=== PATIENT | female | born 1950 | race Caucasian/White ===

== ENCOUNTER → 2018-02-05 14:29 | Outpatient (CLI) | payer OTHER, SELFPAY ==
--- NOTE | 2018-02-05 | DI.RAD.S_ITS ---
PROCEDURE: XR CERVICAL SPINE 2V OR 3V INDICATIONS: status post cervical spinal fusion C1--2 fusion TECHNIQUE: 3 view(s) of the cervical spine were acquired. COMPARISON: [facility], , XR CERVICAL SPINE 4V OR 5V, 09/03/2017, 13:52. FINDINGS: Bones: Postsurgical changes are noted at the level of C1 and C2 reflecting laurel and screw fixation. Hardware is intact without visualized change in alignment or fracture. Significant multiple degenerative changes are present. Soft tissues: No prevertebral soft tissue swelling. IMPRESSION: Stable appearance of C1 to fixation hardware as above. Dictated by: Tracy Lay M.D. on 02/05/2018 at 15:59 Approved by: Tracy Lay M.D. on 02/05/2018 at 16:00
== END ==
PROVIDERS: PCP Family Medicine Geriatric Medicine; Visit Provider Neurological Surgery
DX: Z98.1 Arthrodesis status (principal)
CPT/HCPCS: 72040

== ENCOUNTER 2018-04-16 09:54 | Day surgery (SDC) | payer OTHER, SELFPAY ==
--- NOTE | 2018-04-16 | PATH_ITS ---
[facility] Accession Number: [id number] . 01 Material submitted: . ANAL POLYP . 02 Diagnosis: Anal Polyp, Biopsy: Anorectal junctional mucosa with chronic, focally active inflammation and features of prolapse. Ectatic vessels suggestive of hemorrhoids. Negative for dysplasia or malignancy. MRV/04/17/2018 . 02 Electronically signed: . Tj Oscar MD, PhD, Pathologist NPI- [id number] . 01 Gross description: . Received one formalin-filled container labeled with the patient's name and labeled anal polyp, are two 0.3-0.4 cm portions of tissue, entirely submitted in one cassette. ([id number]) /FRR . 02 Pathologist provided ICD-10: K62.1 . 02 CPT . 010646 Performed at: 01 [facility] [address] [id number] MD Rodney Carmichael MD Phone: [phone] Performed at: 02 [facility] [address] [place], [place] [id number] MD Marli Proctor MD Phone: [phone]
[2018-04-16 10:03] VITALS: BMI 24.3
[2018-04-16 10:10] VITALS: BP 116/70; PULSE 60; RESP 15; TEMP 36.1; O2SAT 100
[2018-04-16] MEDS: SODIUM CHLORIDE 0.9% 1,000 ML 200 ML IV (10:23)
--- NOTE | 2018-04-16 10:33 | SUR.PREOP ---
Pt is ready for procedure at this time. IV patent, NS infusing, Nursing admission has been completed and consent has been signed. Dr Redding will need to complete H/P and sign consent. at the bedside and awaiting Endo fisher troll line and beside assessment by the MD. Discharge instructions have been reviewed with the Pt pre-operatively. No questions at this time.
--- NOTE | 2018-04-16 11:12 | PM.HP.1 ---
History of Present Illness Date Patient Seen: 04/16/18 Time Patient Seen: 11:13 Chief complaint: [id number] Narrative: Patient is a woman here for screening colonoscopy. Her father had colon cancer and from it. Her last exam was 6 years ago. Patient History Medical History Anxiety (Chronic) Surgical History H/O laparoscopy (Resolved) H/O spinal fusion (Resolved) History of appendectomy (Resolved) Family & Social History Social History: household members spouse Meds Home Medications Medication Instructions Recorded Confirmed Type [CO-Q10] 300 mg PO QDAY #0 06/06/16 History aspirin 81 mg PO QDAY #0 06/06/16 04/16/18 History cholecalciferol (vitamin D3) 2,000 iu PO QDAY #0 06/06/16 History [Vitamin D3] cyanocobalamin (vitamin B-12) 5,000 mcg PO QDAY #0 06/06/16 History escitalopram oxalate [Lexapro] 10 mg PO QDAY #0 06/06/16 04/16/18 History estradiol [Estrace] 1 gm VAGINAL #0 06/06/16 History estradiol [Vagifem] 10 mcg VG #0 06/06/16 History magnesium 200 mg PO BID #0 06/06/16 History melatonin 3 mg PO HS #0 06/06/16 History metronidazole [Noritate] 1 homero TOPICAL QDAY #0 06/06/16 History vitamin E 400 unit PO QDAY #0 06/06/16 History metronidazole 1 applic TOPICAL DAILY 04/16/18 04/16/18 History Allergies Allergy/AdvReac Type Severity Reaction Status Date / Time ciprofloxacin [From CIPRO] AdvReac Mild NAUSEA Unverified 08/08/17 12:57 sulfamethoxazole AdvReac Mild MILD Unverified 08/08/17 12:57 [From BACTRIM] NAUSEA (COMPLETE COURSE OF ABX) trimethoprim [From BACTRIM] AdvReac Mild MILD Unverified 08/08/17 12:57 NAUSEA (COMPLETE COURSE OF ABX) Review of Systems Review of Systems All systems reviewed & are unremarkable except as noted in HPI and below Musculoskeletal Comments: Chronic back pain Exam Vital Signs (past 8 hours): - 04/16/18 10:10 Temperature 97 F L Pulse Rate 60 Respiratory Rate 15 Blood Pressure 116/70 Pulse Oximetry 100 Oxygen Delivery Method Room Air Narrative Exam Narrative: Operative no apparent distress. Lungs are clear. Heart regular rate and rhythm with no murmur gallop. Abdomen is soft nontender without mass. Assessment & Plan Plan: Assessment/Plan Narrative: Patient for screening colonoscopy. I have discussed the procedure and the rationale with the patient including risks of bleeding, perforation which would necessitate a major operation, failure to find remove all lesions and the potential to tattoo. They appeared to understand and wished to proceed.
--- NOTE | 2018-04-16 11:18 | PM.PREOP ---
Pre-operative Note Interval Note Pre-op Check: Yes History & Physical exam performed today by Physician Changes: No ASA Class (for procedural sedation): I
[2018-04-16] MEDS: MIDAZOLAM 5 MG/5 ML VIAL IV (11:40)
[2018-04-16] MEDS: fentaNYL 250 MCG/5 ML INJ IV (11:41)
--- NOTE | 2018-04-16 11:51 | PM.OP.ENDO ---
Operative Date/Time/Diagnoses Date of procedure: 04/16/18 Time of procedure: 11:52 Pre-op diagnosis: Screening examination. Last exam 6 years ago. Family history of colon cancer father Post-op diagnosis: same (Irritation on a hemorrhoid. Biopsies taken.) Procedure & Clinicians Study performed: Colonoscopy with cold biopsy Same procedure as scheduled: Yes Indications: Screening exam Surgeon: Shmuel Redding Procedure Notes SCOAP/Timeout: Performed Procedure in detail: The patient was placed in the left lateral decubitus position and underwent IV sedation directed by the surgeon consisting of fentanyl and Versed. Digital exam was unremarkable except for slight increase in tone. The scope was inserted and advanced through the rectum into the sigmoid, descending, transverse, and ascending colon. The colon was quite elongated and tortuous. Diverticulosis was noted in the sigmoid colon. I had at a stiffener in order to reach the cecum. The cecum was reached identified by the ileocecal valve and the appendiceal opening. The ileocecal valve was successfully cannulated. The terminal ileum was normal in appearance. The scope was gradually brought out. No Polyps were found. The scope ultimately was retroflexed in the rectum. The appearance was remarkable for excoriation on hemorrhoid. It was not enough a decided to biopsy the area. There was a fair amount of bleeding. The scope was removed and the patient tolerated the procedure well Scope withdrawal time: 8 min Sedation minutes: 31 Findings: diverticulosis (Sigmoid colon) and internal hemorrhoids Specimen(s): other (Excoriated hemorrhoid) Recommendations: Colonscopy in 5 years (Due to family history) Follow up: as needed Disposition: PACU
[2018-04-16 11:58] VITALS: BP 97/59; PULSE 67; RESP 15; TEMP 36.4; O2SAT 98
== END 2018-04-16 12:05 | disposition home or self-care (01) ==
PROVIDERS: Family Provider Family Medicine Geriatric Medicine; PCP Family Medicine Geriatric Medicine; Visit Provider Specialist
PROC: 0DJD8ZZ Inspection of Lower Intestinal Tract, Via Natural or Artificial Opening Endoscopic (ICD-10-PCS; CPT 45378; principal; 2018-04-16 10:45)
DX: Z12.11 Encounter for screening for malignant neoplasm of colon (principal); Z80.0 Family history of malignant neoplasm of digestive organs; K57.30 Diverticulosis of large intestine without perforation or abscess without bleeding; K64.8 Other hemorrhoids; K62.1 Rectal polyp; F41.9 Anxiety disorder, unspecified
CPT/HCPCS: 45380; 99152; 99153; J2250; J3010